=== PATIENT | male | born 1950 | race Caucasian/White ===

== ENCOUNTER 2018-12-01 17:27 | Observation (INO) ==
[2018-12-01] MEDS ORDERED: Isovue-370 500 ML BOTTLE IVP ONE (18:10)
[2018-12-01] MEDS ORDERED: 0.9 % Sodium Chloride 500 ML IVC ONE (18:10)
--- NOTE | 2018-12-01 18:23 | Emergency Department Note ---
Disposition Clinical Impression: Chest pain Qualifiers: Chest pain type: unspecified Qualified Code(s): R07.9 - Chest pain, unspecified Disposition: Admitted As Inpatient Condition: Fair Referrals: NONE,PCP [Primary Care Provider] - Forms: ED Satisfaction Letter Time of Disposition: 20:40 General Adult HPI - General Chief complaint: ED Chest Pain Stated complaint: CP Time Seen by Provider: 12/01/18 17:29 Source: patient Limitations: no limitations Nursing Notes Reviewed: Yes Vital Signs Reviewed: Yes - History of Present Illness HPI Narrative: Chest pain which started as pins and needles at home at noon and then progressed to a chest pressure around 4:00 and is intermittent lasting between 5 and 8 mi nutes at a time and does intermittently radiate to the back. Does radiate to the left arm with some numbness of the arm. He had lightheadedness and presyncope earlier but that is resolved now. Does have a history of a headache several hours ago started gradually and generalized and lasted for about 25 minutes and is now resolved. Besides the left arm there were no numbness of the extremities. No weakness of extremities. No slurred speech, facial droop, confusion. initially thought the patient was reviewed but this was during a time when he had lightheadedness and the patient states that he was not overtly confused as to person place or time but he was very lightheadedness and felt like he was going to pass out. Did have a strange feeling in his legs earlier which is resolved now and is not able to further define the feeling. He does have a history of cardiac disease. Social history: No smoking. Family history: Negative for heart disease Pain Scale: 4 - Related Data Home Medications Medication Instructions Recorded Confirmed Aspirin [Adult Aspirin] 1 tab PO DAILY 12/01/18 12/01/18 Magnesium Oxide [Magnesium] 400 mg PO BID 12/01/18 12/01/18 Ramipril [Altace] 2.5 mg PO DAILY 12/01/18 12/01/18 Ranitidine HCl [Heartburn Relief] 1 tab PO BID 12/01/18 12/01/18 Simvastatin [Zocor] 20 mg PO DAILY 12/01/18 12/01/18 Allergies Allergy/AdvReac Type Severity Reaction Status Date / Time steroid Allergy Severe See Uncoded 12/01/18 19:59 Comments All systems ED: reviewed and negative except as stated. Past Medical History - Past Medical History Medical history: Reports: coronary artery disease - Social History Smoking Status: Never smoker Alcohol use: Reports: none Physical Exam CONSTITUTIONAL: Well-appearing; well-nourished; A&O X3, in no apparent distress HEAD: Normocephalic; atraumatic. EYES: PERRL, EOMI, no scleral icterus NOSE: The nose is normal in appearance without rhinorrhea NECK: Supple without rigidity, no BIMAL RESP: Normal chest excursion with respiration; breath sounds clear and equal bilaterally; no wheezes, rhonchi, or rales CARD: Regular rhythm, without murmurs, rub or gallop ABD: Non-distended; non-tender, soft, without rigidity, rebound or guarding SKIN: Normal for age and race; warm and dry; no apparent lesions, no rash NEUROLOGICAL: Patient is alert and oriented times three. Cranial nerves III- XII are intact. Sensory and motor functions are intact. Strength is 5/5 for flexion and extension in all 4 extremities. Patellar DTRS are equal and intact. Finger to nose testing is equal and normal bilaterally. EXTREMITIES: Pulses are 2 plus and equal times 4 extremities, no peripheral edema or calf muscle pain. - General Limitations: no limitations General appearance: alert, in no apparent distress Course Vital Signs Temperature 98.1 F 12/01/18 17:33 Pulse Rate 70 12/01/18 17:33 Respiratory Rate 16 12/01/18 17:33 Blood Pressure 208/91 12/01/18 17:33 O2 Sat by Pulse Oximetry 100 12/01/18 17:33 Temperature 98.1 F 12/01/18 17:33 Pulse Rate 68 12/01/18 18:48 Respiratory Rate 21 12/01/18 18:48 Blood Pressure 190/88 12/01/18 18:48 O2 Sat by Pulse Oximetry 98 12/01/18 18:48 Oxygen Delivery Oxygen Delivery Room Air Medical Decision Making - [facility] Narrative Medical decision making narrative: I did review the patient's EKG which shows normal sinus rhythm with rate of [address] changes and isolated T-wave inversion in lead aVL. Patient does have labs ordered, will be watched on the monitor and will have a chest CT to look for dissection which included chest abdomen and pelvis CT scan. Results pending. At this time he is bright and alert and in no distress. Not confused. Neuro exam is negative. 1822 The CTA is negative and I did speak with Dr. León the hospitalist who accepts the patient for admission for further consideration of acute coronary syndrome. The patient does have hyponatremia and he will be admitted to the hospital watch on the supply chain project manager. 2035 - Medical Records Medical records reviewed: Yes I reviewed the patient's medical records. - Lab Data Lab results reviewed: Yes I reviewed the patient's lab results. Result diagrams: 12/01/18 18:05 12/01/18 18:05 Lab Results 12/01/18 12/01/18 12/01/18 Range/Units 18:05 18:05 18:51 WBC 8.7 (4.3-11.1) K/mcL RBC 4.29 (4.19-5.50) M/mcL Hgb 12.9 (12.9-16.9) g/dL Hct 38.7 (37.5-50.1) % MCV 90.2 (83.0-100.0) fL MCH 30.1 (28.0-33.3) pg MCHC 33.3 (31.6-35.5) g/dL RDW 11.9 (11.5-14.5) % Plt Count 301 (140-400) K/mcL MPV 9.6 (9.4-12.4) fL Immature Gran % 0.6 (0-4) % Seg Neutrophils % 79.9 % Lymphocytes % 11.4 % Monocytes % 6.3 % Eosinophils % 1.3 % Basophils % 0.5 % Neutrophils # 7.0 (1.6-8.9) K/mcL Lymphocytes # 1.0 (0.6-4.6) K/mcL Monocytes # 0.6 (0.0-1.3) K/mcL Eosinophils # 0.1 (0.0-0.6) K/mcL Basophils # 0.0 (0.0-0.2) K/mcL Sodium 126 L (136-145) mEq/L Potassium 3.6 (3.5-5.1) mEq/L Chloride 94 L (98-107) mEq/L Carbon Dioxide 24 (23-29) mEq/L BUN 8 (8-23) mg/dL Creatinine 0.57 L (0.70-1.30) mg/dL Est GFR ( Amer) > 60 (> 60) Est GFR (Non-Af Amer) > 60 (> 60) BUN/Creatinine Ratio 14 (6-26) Glucose 129 H (70-105) mg/dL Calculated Osmolality 262 L (280-300) Calcium 9.3 (8.6-10.3) mg/dL Troponin I < 0.03 (< 0.04) ng/mL Blood Type O POSITIVE Antibody Screen NEGATIVE - Radiology Data Radiology results reviewed: Yes I reviewed the patient's radiology results.
[2018-12-01 18:52] LABS: Basophils % 0.5 %; Eosinophils # 0.1 K/mcL (0.0-0.6); Eosinophils % 1.3 %; Hematocrit 38.7 % (37.5-50.1); Hemoglobin 12.9 g/dL (12.9-16.9); Immature Granulocytes % 0.6 % (0-4); Lymphocytes % 11.4 %; Mean Corpuscular HGB Conc 33.3 g/dL (31.6-35.5); Mean Corpuscular Hemoglobin 30.1 pg (28.0-33.3); Mean Corpuscular Volume 90.2 fL (83.0-100.0); Mean Platelet Volume 9.6 fL (9.4-12.4); Monocytes # 0.6 K/mcL (0.0-1.3); Monocytes % 6.3 %; Platelet Count 301 K/mcL (140-400); Red Blood Count 4.29 M/mcL (4.19-5.50); Red Cell Distribution Width 11.9 % (11.5-14.5); Segmented Neutrophils % 79.9 %; White Blood Count 8.7 K/mcL (4.3-11.1)
[2018-12-01 19:14] LABS: BUN/Creatinine Ratio 14 (6-26); Blood Urea Nitrogen 8 mg/dL (8-23); Calcium 9.3 mg/dL (8.6-10.3); Carbon Dioxide 24 mEq/L (23-29); Chloride 94 mEq/L (98-107); Glucose 129 mg/dL (70-105); Osmolality,Calculated 262 (280-300); Potassium 3.6 mEq/L (3.5-5.1); Sodium 126 mEq/L (136-145); Troponin I < 0.03 ng/mL (< 0.04); eGFR For African Americans > 60 (> 60); eGFR For Non-African Americans > 60 (> 60)
[2018-12-02] MEDS ORDERED: Acetaminophen 325 MG TABLET PO PRN (01:53)
[2018-12-02] MEDS ORDERED: Naloxone 0.4 MG/ML INJ IVP PRN (01:53)
[2018-12-02] MEDS ORDERED: Ondansetron 4 MG/2 ML VIAL IVP PRN (01:53)
[2018-12-02 02:49] LABS: Basophils % 0.5 %; Eosinophils # 0.3 K/mcL (0.0-0.6); Eosinophils % 3.6 %; Hematocrit 38.2 % (37.5-50.1); Hemoglobin 12.9 g/dL (12.9-16.9); Immature Granulocytes % 0.4 % (0-4); Lymphocytes # 1.5 K/mcL (0.6-4.6); Lymphocytes % 18.2 %; Mean Corpuscular HGB Conc 33.8 g/dL (31.6-35.5); Mean Corpuscular Hemoglobin 30.6 pg (28.0-33.3); Mean Corpuscular Volume 90.7 fL (83.0-100.0); Mean Platelet Volume 9.1 fL (9.4-12.4); Monocytes # 0.8 K/mcL (0.0-1.3); Monocytes % 9.4 %; Neutrophils # 5.5 K/mcL (1.6-8.9); Platelet Count 290 K/mcL (140-400); Red Blood Count 4.21 M/mcL (4.19-5.50); Red Cell Distribution Width 11.8 % (11.5-14.5); Segmented Neutrophils % 67.9 %; White Blood Count 8.2 K/mcL (4.3-11.1)
[2018-12-02 03:07] LABS: Alanine Aminotransferase 12 Units/L (7-52); Albumin 4.2 g/dL (3.5-5.7); Albumin/Globulin Ratio 1.6 (1.1-2.2); Alkaline Phosphatase 71 Units/L (34-104); Aspartate Amino Transferase 15 Units/L (13-39); BUN/Creatinine Ratio 13 (6-26); Bilirubin,Total 0.6 mg/dL (0.3-1.0); Blood Urea Nitrogen 7 mg/dL (8-23); Calcium 9.1 mg/dL (8.6-10.3); Carbon Dioxide 24 mEq/L (23-29); Chloride 96 mEq/L (98-107); Chol/HDL Ratio 2.2 (0-4.9); Cholesterol 117 mg/dL (< 200); Globulin 2.6 g/dL (2.4-3.5); Glucose 141 mg/dL (70-105); HDL Cholesterol 53 mg/dL (40-59); LDL Cholesterol,Calculated 54 mg/dL (0-99); Osmolality,Calculated 266 (280-300); Potassium 3.6 mEq/L (3.5-5.1); Sodium 128 mEq/L (136-145); Total Protein 6.8 g/dL (6.4-8.9); Triglycerides 48 mg/dL (< 150); eGFR For African Americans > 60 (> 60); eGFR For Non-African Americans > 60 (> 60)
[2018-12-02 03:16] LABS: INR 1.1; Prothrombin Time 12.1 Seconds (9.4-12.1)
[2018-12-02 03:19] LABS: Activated Partial Thrombo Time 31.1 Seconds (26.0-36.0)
[2018-12-02] MEDS: Magnesium Oxide 400 MG TABLET PO SCH ×3 (04:12→21:27)
[2018-12-02] MEDS: *HR* Heparin 5,000 UNIT/ML VIAL SQ SCH ×2 (04:12→18:25)
--- NOTE | 2018-12-02 04:36 | Internal Med History&Physical ---
Date of Encounter: 12/02/18 Time of Encounter: 01:30 Internal Medicine - H&P: HPI Chief complaint: chest pain Admitted From: Emergency Dept Plans for Post Hospital Care: Home History of present illness: Mr. Frank is a 68 year old male who presents with a one day history of chest pain, tightness, shortness of breath. Symptoms were similar to his prior anginal symptoms thus prompting him to go the ER. Symptoms of chest pain were more positional and not truly with exertion. Workup in ER was negative. He also underwent CTA dissection study given he had some pain radiating to his back. Findings were negative other than a subtle small 3 mm nodule. He was admitted to hospitalist for further workup and care. Upon my assessment of the patient, patient states he has a history of coronary artery disease and underwent CABG in 2009. He lives in [place], [place] and was visiting family here in [place]. He is due to fly home later today and is hoping to discharge early so he can fly home and follow-up with his family doctor. He is very compliant and zoroastrianism with his cardiac follow-up. He last saw his python web developer in September of this year and was given a clean bill of health. He has had recent stress testing in [place] which he reports was negative. After I noted he had hyponatremia, he informed me that this is chronic and he has a history of neurocardiogenic syncope. He states he takes salt tablets on occasion and eats a salty/noncardiac diet to help keep the sodium levels normal. He is not taking any diuretics. He denies any smoking history. He denies any alcohol use or abuse. He states he leads a healthy lifestyle and healthy diet, otherwise. He states he has been worked up for his hyponatremia in the past. He denies any history of adrenal insufficiency. Past Med Surg Social Fam HX - Past Medical History Attestation: Yes The following information was validated with the patient. Source: patient Medical history: coronary artery disease Psychiatric history: no psych history - Past Surgical History Surgical History: coronary bypass (CABG) Additional surgical history: C5, C6, C7 surgery. CABG x4 2010 - Social History Smoking Status: Never smoker Alcohol use: none Drug use: none Current living situation: Home, With Family Activity Level: Independent ambulation, Very active Recent Out of Country Travel Within the Last 8 Weeks: No - Family History Father Living Status: Age at : 70 Hx Family Cancer: Yes (lung cancer) Internal Medicine - H&P: Meds Aspirin [Adult Aspirin] 1 tab PO DAILY 12/01/18 [History] Magnesium Oxide [Magnesium] 400 mg PO BID 12/01/18 [History] Ramipril [Altace] 2.5 mg PO DAILY 12/01/18 [History] Ranitidine HCl [Heartburn Relief] 1 tab PO BID 12/01/18 [History] Simvastatin [Zocor] 20 mg PO DAILY 12/01/18 [History] Allergy/AdvReac Type Severity Reaction Status Date / Time steroid Allergy Severe See Uncoded 12/01/18 19:59 Comments - Constitutional Constitutional: no chills, no fever(s), no falls, no night sweats - EENT Eyes: no blurry vision, no change in vision Ears: no ear pain, no tinnitus Nose, mouth and throat: no nasal congestion, no sore throat - Cardiovascular Cardiovascular ROS IM: chest pain, no dyspnea, no dyspnea on exertion, no edema, no orthopnea, no palpitations, no paroxysmal nocturnal dyspnea - Respiratory Respiratory: no cough, no pain on inspiration, no chest congestion, no excessive phlegm production, no change in phlegm color - Gastrointestinal Gastrointestinal: no abdominal pain, no diarrhea, no hematemesis, no hematochezia, no melena, no vomiting - Genitourinary Genitourinary ROS male: no dysuria, no flank pain, no hematuria - Musculoskeletal Musculoskeletal ROS IM: no arthralgias, no back pain - Integumentary Integumentary IM: no rash, no jaundice - Neurological Neurological ROS: no disequilibrium, no dizziness, no focal weakness, no frequent falls, no headache(s) - Psychiatric Psychiatric: no anxiety, no depression - Endocrine Endocrine IM: no polydipsia, no polyuria - Allergic/Immunologic Allergic/Immunologic: no wheezing, no GI upset with certain foods - Constitutional Vitals: Temp Pulse Resp BP Pulse Ox 98.4 F 66 16 171/94 97 12/02/18 03:01 12/02/18 03:01 12/02/18 03:01 12/02/18 03:01 12/02/18 03:01 General appearance: Present: cooperative, A&O X 3, pleasant, no acute distress, answers questions appropriately Exam: CP free currently - Head Head exam: Present: atraumatic, normal inspection - Eye Eye exam: Present: EOMI, PERRL. Absent: scleral icterus Pupils: Present: normal accommodation - ENT ENT exam: Present: mucous membranes dry, normal exam, normal oropharynx - Neck Neck exam general surgery: Present: full ROM, supple, trachea midline. Absent: tenderness, nuchal rigidity, thyromegaly - Respiratory Respiratory exam: Present: CTAB. Absent: chest wall tenderness, rales, respiratory distress, rhonchi, wheezes - Cardiovascular Cardiovascular exam: Present: RRR, +S1, +S2. Absent: diastolic murmur, systolic murmur - GI/Abdominal GI/Abdominal exam: Present: normal bowel sounds, soft. Absent: guarding, hepatomegaly, mass, rebound, splenomegaly, tenderness - Extremities Exam Extremities exam: Present: full ROM, normal capillary refill, warm, radial pulses palpable and symmetrical. Absent: calf tenderness, joint swelling, pedal edema, tenderness - Back Exam Back exam: Absent: CVA tenderness (L), CVA tenderness (R) - Neurological Exam Neurological exam: Present: alert, CN II-XII intact, oriented X3, no focal deficits, strengths equal and symetr throughout - Psychiatric Psychiatric exam: Present: normal affect, normal mood - Skin Skin exam: Present: dry, intact, warm Internal Med - H&P Results - Labs CBC & Chem 7: 12/02/18 02:33 12/02/18 02:33 Labs: Short CBC 12/01/18 12/02/18 Range/Units 18:05 02:33 WBC 8.7 8.2 (4.3-11.1) K/mcL Hgb 12.9 12.9 (12.9-16.9) g/dL Hct 38.7 38.2 (37.5-50.1) % Plt Count 301 290 (140-400) K/mcL Neutrophils # 7.0 5.5 (1.6-8.9) K/mcL BMP 12/01/18 12/02/18 18:05 02:33 Sodium 126 L 128 L Potassium 3.6 3.6 Chloride 94 L 96 L Carbon Dioxide 24 24 BUN 8 7 L Creatinine 0.57 L 0.55 L Glucose 129 H 141 H Calcium 9.3 9.1 Cardiac Enzymes 12/01/18 12/02/18 Range/Units 18:05 02:33 Troponin I < 0.03 < 0.03 (< 0.04) ng/mL Liver Function 12/02/18 Range/Units 02:33 Total Bilirubin 0.6 (0.3-1.0) mg/dL AST 15 (13-39) Units/L ALT 12 (7-52) Units/L Alkaline Phosphatase 71 (34-104) Units/L Albumin 4.2 (3.5-5.7) g/dL - EKG Data -: EKG Interpreted by Myself - EKG Data Prior EKG available for review: no EKG comments: 12/02/18 04:39 NSR; no acute ST-T changes - Impressions ITS Impressions CT Dissection 12/01/18 18:09 IMPRESSION: No evidence of a thoracic or abdominal aortic aneurysm or dissection. 3 mm micronodule within the right middle lobe. Optional CT at 12 months could be performed if the patient is at risk for lung neoplasm (see recommendations below). 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 At this point, that is probably not flow limiting, but nonetheless correlate with any clinical evidence of chronic mesenteric ischemia. Moderate mural thickening of the distal esophagus and gastric cardia, with surrounding fat stranding. Gastritis/esophagitis would be a consideration, and is a potential etiology of the patient's chest pain. Definite ulceration is not detected, but that can be difficult to visualized with CT technique. Consider direct visualization. RECOMMENDATIONS: Fleischner Society guidelines for follow-up and management of incidentally detected pulmonary nodules: Single Solid Nodule: Nodule size less than 6 mm In a low-risk patient, no routine follow-up. In a high-risk patient, optional CT at 12 months. - Low risk patients include individuals with minimal or absent history of smoking and other known risk factors. - High risk patients include individuals with a history or smoking or known risk factors. Radiology 2017 http://pubs.rsna.org/doi/full/10.1148/radiol.[email or web address] D/ / Manjinder Boyle MD / Manjinder Boyle MD Interpreting Provider: Manjinder Boyle MD Chest X-Ray 12/01/18 18:09 IMPRESSION: No acute abnormalities detected. D/ / Manjinder Boyle MD / Manjinder Boyle MD Interpreting Provider: Manjinder Boyle MD - Diagnostic Studies Chest x-ray Status: image reviewed by me (negative) - Assessment and Plan (1) Chest pain Current Visit: Yes Status: Acute Assessment and plan: 1. Trend troponins and EKG's. 2. Cardiac monitoring. 3. Consult cardiology prior to discharge for guidance and recommendations. 4. By my assessment, symptoms and exam do not suggest anginal symptoms. Qualifiers: Chest pain type: precordial pain Qualified Code(s): R07.2 - Precordial pain (2) CAD (coronary artery disease) Current Visit: Yes Status: Chronic Assessment and plan: 1. Continue healthy lifestyle and home meds as appropriate. 2. Follow up with PCP and python web developer upon returning home to [place]. Qualifiers: Coronary Disease-Associated Artery/Lesion type: [place] artery [place] vs. transplanted heart: [place] heart Associated angina: without angina Qualified Code(s): I25.10 - Atherosclerotic heart disease of [place] coronary artery without angina pectoris (3) Hyponatremia Current Visit: Yes Status: Chronic Assessment and plan: 1. Repeat labs ordered in the morning. 2. Follow up with PCP as this is a chronic issue. (4) DVT prophylaxis Current Visit: Yes Status: Acute Assessment and plan: 1. Heparin SQ.
[2018-12-02] MEDS ORDERED: 0.9 % Sodium Chloride 1,000 ML IVC SCH (09:00)
--- NOTE | 2018-12-02 09:03 | Event Note ---
Date of Encounter: 12/02/18 Time of Encounter: 08:59 Patient was seen and examined earlier this am by hospitalist services. Currently the patient is not experiencing any CP- Trop have been negative thus far. However his Na level is 128. Discussed his baseline which he states is 134- he doesn't take any Na tablets at home- he states that he normally controls his Na with diet and that his baseline is around 132-134. He states he does feel bad when his sodium drops. Advised patient that we will cont to monitor his Na closely and will give him some IVF. We will also obtain a cardiac echo if anything abnormal we will consult cardiology
[2018-12-02] MEDS: Famotidine 20 MG TABLET PO SCH ×2 (10:35→21:27)
[2018-12-02] MEDS: Aspirin Enteric Coated 81 MG Tablet PO SCH (10:36)
--- NOTE | 2018-12-02 16:07 | Electrocardiograph Report ---
[place] [address] Test Date: 2018-12-01 Pat Name: Troy Frank Department: [id number] Room: 3B43 Gender: M Ironer Or Presser: : 1950 Requested By: Tashi Hernandez Order Number: [id number] Reading MD: Marty Bejarano Measurements Intervals [place] Rate: 75 P: 76 NC: 172 QRS: 14 QRSD: 93 T: 72 QT: 384 QTc: 429 Interpretive Statements Sinus rhythm Left atrial enlargement Anteroseptal infarct, age indeterminate Electronically Signed On 12-02-2018 16:05:53 EDT by Marty Bejarano
--- NOTE | 2018-12-02 16:16 | Electrocardiograph Report ---
[address] [place], [place] [address] Test Date: 2018-12-01 Pat Name: Troy Frank Department: [id number] Room: 3B43 Gender: M Loan Processing Supervisor: : 1950 Requested By: Dominic Silva Order Number: [id number] Reading MD: Marty Bejarano Measurements Intervals [place] Rate: 73 P: 71 UT: 169 QRS: 3 QRSD: 86 T: 77 QT: 394 QTc: 435 Interpretive Statements Sinus rhythm Probable left atrial enlargement Possible anteroseptal infarction, age undetermined Electronically Signed On 12-02-2018 16:15:25 EDT by Marty Bejarano
[2018-12-03] MEDS: *HR* Heparin 5,000 UNIT/ML VIAL SQ SCH (05:41)
[2018-12-03 05:53] LABS: BUN/Creatinine Ratio 12 (6-26); Blood Urea Nitrogen 7 mg/dL (8-23); Calcium 9.4 mg/dL (8.6-10.3); Carbon Dioxide 23 mEq/L (23-29); Chloride 98 mEq/L (98-107); Glucose 127 mg/dL (70-105); Osmolality,Calculated 272 (280-300); Potassium 3.9 mEq/L (3.5-5.1); Sodium 131 mEq/L (136-145); eGFR For African Americans > 60 (> 60); eGFR For Non-African Americans > 60 (> 60)
[2018-12-03 07:01] VITALS: BP 166/88
[2018-12-03] MEDS: Famotidine 20 MG TABLET PO SCH (09:00)
[2018-12-03] MEDS: Aspirin Enteric Coated 81 MG Tablet PO SCH (09:00)
[2018-12-03] MEDS: Magnesium Oxide 400 MG TABLET PO SCH (09:00)
--- NOTE | 2018-12-03 11:32 | Discharge Summary ---
- NOTES TO OUTPATIENT PROVIDER Notes to Outpatient Provider: f/u with PCP in 5-7 days. f/u with Cardiology in 5-7 days Orders not resulted at time of discharge: Pending orders 12/02/18 23:35 Osmolality,Urine [UCHEM] Routine Sodium, Urine [UCHEM] Routine Date of Encounter: 12/03/18 Time of Encounter: 10:30 - Discharge Diagnosis (1) Chest pain Priority: Primary Status: Acute Qualifiers: Chest pain type: precordial pain Qualified Code(s): R07.2 - Precordial pain (2) Hyponatremia Priority: Primary Status: Acute (3) CAD (coronary artery disease) Priority: Secondary Status: Chronic Qualifiers: Coronary Disease-Associated Artery/Lesion type: [place] artery [place] vs. transplanted heart: [place] heart Associated angina: without angina Qualified Code(s): I25.10 - Atherosclerotic heart disease of [place] coronary artery without angina pectoris (4) DVT prophylaxis Priority: Secondary Status: Acute Hospital course: Mr. Frank is a 68 year old male with known PMH of HTN, CAD, Neuro cardiogenic syncope and chronic hyponatremia pt presented to ER with chest tightness and SOB, felt more like neuro cardiogenic syncope type symptoms which he usually gets when his Na was low. In the ER he happened to have moderate hyponatremia. So pt was admitted in the hospital placed him on property assessment monitor. His his serial troponin came back is negative. His EKG did not show any acute ischemic changes. His sodium was improved with the soaring tablets and IV hydration. Today his Na @ 131. So will discharge him home in a stable condition today. Regarding his chest pain patient would like to follow up with to the regular national opelint analyst from [place], advised him to see his national opelint analyst as soon as possible if his keep persistently having chest pain. He denied any active chest pain now - Time Spent with Patient Total time spent providing and/or coordinating discharge services: - Discharge Medications Prescriptions: New Sodium Chloride [Sodium Chloride Tab] 1 gm PO BID #60 tablet Continued Aspirin [Adult Aspirin] 81 mg PO QPM Ranitidine HCl [Heartburn Relief] 150 mg PO BID Magnesium Oxide [Magnesium] 400 mg PO BID Simvastatin [Zocor] 20 mg PO QPM Ramipril [Altace] 2.5 mg PO QAM Cholecalciferol (Vitamin D3) [Vitamin D3] 1,000 units PO QAM Fluticasone Propionate Nasal [Flonase] 2 spray NS BID PRN PRN Reason: Allergy Symptoms Vitamin B Complex [Balanced B-50] 1 tab PO QAM Home Medications: Aspirin [Adult Aspirin] 81 mg PO QPM 12/01/18 [History] Magnesium Oxide [Magnesium] 400 mg PO BID 12/01/18 [History] Ramipril [Altace] 2.5 mg PO QAM 12/01/18 [History] Ranitidine HCl [Heartburn Relief] 150 mg PO BID 12/01/18 [History] Simvastatin [Zocor] 20 mg PO QPM 12/01/18 [History] Cholecalciferol (Vitamin D3) [Vitamin D3] 1,000 units PO QAM 12/02/18 [History] Fluticasone Propionate Nasal [Flonase] 2 spray NS BID PRN 12/02/18 [History] Vitamin B Complex [Balanced B-50] 1 tab PO QAM 12/02/18 [History] Sodium Chloride [Sodium Chloride Tab] 1 gm PO BID #60 tablet 12/03/18 [Rx] Allergies/Adverse Reactions: Allergy/AdvReac Type Severity Reaction Status Date / Time steroid Allergy Severe See Uncoded 12/01/18 19:59 Comments Date of admission: 12/01/18 21:43 Primary care physician: PCP NONE - Constitutional Vitals: Temp Pulse Resp BP Pulse Ox 97.9 F 75 15 166/88 95 12/03/18 06:44 12/03/18 06:44 12/03/18 06:44 12/03/18 06:44 12/03/18 06:44 General appearance: Present: cooperative, A&O X 3, pleasant, no acute distress, answers questions appropriately Exam: Gen: Alert, awake, Oriented to time,place and person Chest: Diminished breath sounds B/L, No wheezing, No crackles, No rales Heart: S1S2+ RRR No murmurs Ext: No edema, No calf tenderness Neuro : A, A, O Skin: No rash. - Patient Status Disposition: Home, Self-Care Condition: Good Overall status at discharge: patient is back to baseline - Discharge Instructions Follow Up With: NONE,PCP [Primary Care Provider] - - Diet and Activity Activity: increase activity as tolerated Diet: low salt diet
== END 2018-12-03 12:09 | disposition home or self-care (01) ==
LOC: EMEROOARM 17:27 → 3BNU 17:27 → SUATTDRO 21:43 → 3BNU 22:45
PROVIDERS: ADMIT Pediatrics; ATTEND Family Medicine